=== PATIENT | male | born 1995 | race Caucasian/White ===

== ENCOUNTER 2021-04-02 19:14 | Emergency (ER) | payer BC ==
[2021-04-02] MEDS ORDERED: Sodium Chloride 0.9% 10 ML Syringe FLUSH PRN (19:42)
[2021-04-02] MEDS ORDERED: Ondansetron 4 MG/2 ML SDV IVPUSH ONE (19:43)
[2021-04-02] MEDS ORDERED: HYDROmorphone 1 MG/ML Syringe IVPUSH ONE ×2 (19:44→20:58)
[2021-04-02] MEDS ORDERED: Sodium Chloride 0.9% 1,000 ML IV SCH (19:45)
--- NOTE | 2021-04-02 20:14 | EDM.PDOC ---
ED HPI GENERAL MEDICAL PROBLEM - General Stated Complaint: KIDNEY STONES Time Seen by Provider: 04/02/21 19:25 Source of Information: Reports: Patient History Limitations: Reports: No Limitations - History of Present Illness INITIAL COMMENTS - FREE TEXT/NARRATIVE: Pt. presents to ER with complaints of L sided lower back/flank pain. Pt. states that he started experiencing the discomfort on 03/15, and had a CT scan of abdomen and pelvis on 03/26 which showed a 5x3 mm obstructing stone at L UVJ with hydronephrosis, renal edema, and perinephric standing. He was started on tramadol and flomax. He states that the discomfort did improve for a bit but came back this AM at about 10 AM. Pt. has been experiencing nausea and vomiting and is unable to hold down any fluids. Denies any fever or chills. No chest pain or shortness of breath. Pt. did have a BMP performed on the . His creatinine was 1.8, BUN was 14, and GFR was 47. He was referred to urology but doesn't have an appointment until 04/09. Pt. denies any known history of CKD/TRAY in the past. He has not history of kidney stones in the past. left flank Pain Score (Numeric/FACES): 8 - Related Data Allergies Allergy/AdvReac Type Severity Reaction Status Date / Time No Known Allergies Allergy Verified 04/02/21 19:42 Home Meds: Home Meds Tamsulosin [Tamsulosin 24 Hr] 0.4 mg PO DAILY 04/02/21 [History] traMADol [Ultram] 50 mg PO Q6H 04/02/21 [History] ED ROS GENERAL - Review of Systems Review Of Systems: Comprehensive ROS is negative, except as noted in HPI. ED EXAM, GENERAL - Physical Exam Exam: See Below Exam Limited By: No Limitations General Appearance: Alert, WD/WN, Moderate Distress Respiratory/Chest: No Respiratory Distress, Lungs Clear, Normal Breath Sounds, No Accessory Muscle Use, Chest Non-Tender Cardiovascular: Normal Peripheral Pulses, Regular Rate, Rhythm, No Edema, No Gallop, No JVD, No Rub GI/Abdominal: Soft, Non-Tender, No Distention, No Mass (Male) Exam: Deferred Rectal (Males) Exam: Deferred Back Exam: Normal Inspection, Other (mid back pain on left) Extremities: Normal Inspection, Normal Range of Motion, Non-Tender, No Pedal Edema, Normal Capillary Refill Neurological: Alert, Oriented, CN II-XII Intact, Normal Cognition, Normal Gait, Normal Reflexes, No Motor/Sensory Deficits Psychiatric: Normal Affect, Normal Mood Skin Exam: Warm, Diaphoretic, Pallor Course - Vital Signs Last Recorded V/S: Last Vital Signs Temp 36.8 C 04/02/21 19:14 Pulse 64 04/02/21 19:14 Resp 16 04/02/21 19:14 BP 124/79 04/02/21 19:14 Pulse Ox 97 04/02/21 19:14 - Orders/Labs/Meds Orders: Active Orders 24 hr Category Date Time Status CORONAVIRUS COVID-19 ANETTE [MOLEC] Stat Lab 04/02/21 21:06 Ordered Sodium Chloride 0.9% [Normal Saline] 1,000 ml Med 04/02/21 19:45 Active IV ASDIRECTED Sodium Chloride 0.9% [Saline Flush] Med 04/02/21 19:42 Active 10 ml FLUSH ASDIRECTED PRN Peripheral IV Insertion Adult [OM.PC] Routine Oth 04/02/21 19:42 Ordered Medication Orders Sodium Chloride (Normal Saline) 1,000 mls @ 1,000 mls/hr IV ASDIRECTED SHANA Last Admin: 04/02/21 20:12 Dose: 1,000 mls/hr Documented by: ANUJA Sodium Chloride (Sodium Chloride 0.9% 10 Ml Syringe) 10 ml FLUSH ASDIRECTED PRN PRN Reason: Keep Vein Open Labs: Laboratory Tests 04/02/21 04/02/21 04/02/21 Range/Units 20:04 20:04 20:15 WBC 8.9 (4.0-10.0) x10^3/uL RBC 5.21 (4.5-6.0) x10^6/uL Hgb 14.9 (14.0-18.0) g/dL Hct 41.7 (40.0-52.0) % MCV 80.0 (78.0-93.0) fL MCH 28.6 (26.0-32.0) pg MCHC 35.7 (32.0-36.0) g/dL RDW Coeff of Elayne 11.9 (10.0-15.0) % Plt Count 130 (130-400) x10^3/uL Neut % (Auto) 79.4 (50.0-80.0) % Lymph % (Auto) 13.0 L (25.0-50.0) % Toombs % (Auto) 7.3 (2.0-11.0) % Eos % (Auto) 0.2 (0.0-4.0) % Baso % (Auto) 0.1 L (0.2-1.2) % Sodium 136 (136-145) mmol/L Potassium 4.5 (3.5-5.1) mmol/L Chloride 101 (98-107) mmol/L Carbon Dioxide 25 (21-32) mmol/L Anion Gap 14.5 (5-15) mmol/L BUN 13 (7-18) mg/dL Creatinine 1.8 H (0.70-1.30) mg/dL Est Cr Clr Drug Dosing TNP Estimated GFR (MDRD) 47 Glucose 98 (70-99) mg/dL Calcium 8.5 (8.5-10.1) mg/dL Corrected Calcium 8.4 L (8.5-10.1) mg/dL Total Bilirubin 0.5 (0.2-1.0) mg/dL AST 15 (15-37) U/L ALT 22 (16-63) U/L Alkaline Phosphatase 65 (46-116) U/L C-Reactive Protein < 0.2 (<=0.9) mg/dL Total Protein 7.3 (6.4-8.2) g/dL Albumin 4.1 (3.4-5.0) g/dL Globulin 3.2 Albumin/Globulin Ratio 1.28 Urine Color Yellow (YELLOW) Urine Appearance Clear (CLEAR) Urine pH 6.0 (5.0-8.0) Ur Specific [place]patoi 1.025 Urine Protein Negative (NEGATIVE) mg/dL Urine Glucose (UA) Negative (NEGATIVE) mg/dL Urine Ketones Negative (NEGATIVE) mg/dL Urine Occult Blood Negative (NEGATIVE) Urine Nitrite Negative (NEGATIVE) Urine Bilirubin Negative (NEGATIVE) Urine Urobilinogen 0.2 (0.2) EU/dL Ur Leukocyte Esterase Negative (NEGATIVE) Meds: Medications Generic Name Dose Route Start Last Admin Trade Name Freq PRN Reason Stop Dose Admin Sodium Chloride 1,000 mls @ 1,000 mls/hr 04/02/21 19:45 04/02/21 20:12 Normal Saline IV 1,000 mls/hr ASDIRECTED SHANA Administration Sodium Chloride 10 ml 04/02/21 19:42 Sodium Chloride 0.9% 10 Ml Syringe FLUSH ASDIRECTED PRN Keep Vein Open Discontinued Medications Generic Name Dose Route Start Last Admin Trade Name Freq PRN Reason Stop Dose Admin Hydromorphone HCl 1 mg 04/02/21 19:44 04/02/21 20:14 Hydromorphone 1 Mg/Ml Syringe IVPUSH 04/02/21 19:45 1 mg ONETIME ONE Administration Hydromorphone HCl 1 mg 04/02/21 20:58 Hydromorphone 1 Mg/Ml Syringe IVPUSH 04/02/21 20:59 ONETIME ONE Ondansetron HCl 4 mg 04/02/21 19:43 04/02/21 20:12 Ondansetron 4 Mg/2 Ml Sdv IVPUSH 04/02/21 19:44 4 mg ONETIME ONE Administration Departure - Departure Time of Disposition: 21:11 Disposition: DC/Tfer to Acute Hospital 02 Clinical Impression: Kidney stone - Discharge Information Referrals: Farhan Sifuentes NP [Primary Care Provider] - Sepsis Event Note (ED) - Focused Exam Vital Signs: Vital Signs Temp Pulse Resp BP Pulse Ox 04/02/21 19:14 36.8 C 64 16 124/79 97 - Problem List Review Problem List Initiated/Reviewed/Updated: Yes - My Orders Last 24 Hours: My Active Orders 04/02/21 19:42 Sodium Chloride 0.9% [Saline Flush] 10 ml FLUSH ASDIRECTED PRN Peripheral IV Insertion Adult [OM.PC] Routine 04/02/21 19:45 Sodium Chloride 0.9% [Normal Saline] 1,000 ml IV ASDIRECTED 04/02/21 21:06 CORONAVIRUS COVID-19 ANETTE [MOLEC] Stat - Assessment/Plan Last 24 Hours: My Active Orders 04/02/21 19:42 Sodium Chloride 0.9% [Saline Flush] 10 ml FLUSH ASDIRECTED PRN Peripheral IV Insertion Adult [OM.PC] Routine 04/02/21 19:45 Sodium Chloride 0.9% [Normal Saline] 1,000 ml IV ASDIRECTED 04/02/21 21:06 CORONAVIRUS COVID-19 ANETTE [MOLEC] Stat Plan: Pt. still having moderate pain despite having 2 doses of IV dilaudid for pain control. [facility] one call was notified. I spoke with Dr. Garcia who feels the patient should be admitted there and be evaluated by urology tomorrow for stent or other treatment. Pt. will be transferred via private vehicle. he has a sober person to drive him there. Covid was performed at request of [facility] and is pending. All questions were answered.
[2021-04-02 20:29] LABS: ANION GAP 14.5 mmol/L (5-15); CHLORIDE,CL 101 mmol/L (98-107); SODIUM,NA 136 mmol/L (136-145)
== END 2021-04-02 21:42 | disposition short-term general hospital (02) ==
LOC: VM.ED 19:14
DX: N20.0 Calculus of kidney (principal); Z20.822 Contact with and (suspected) exposure to COVID-19
CPT/HCPCS: 36415; 80053; 81003; 85025; 86140; 96374; 96375; 96376; 99283; 99284-25; J1170; J2405; J7030; U0002